=== PATIENT | male | born 2000 | race American Indian/Alaskan Native ===

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

== ENCOUNTER 2019-03-29 10:42 | Emergency (ER) | payer SELFPAY ==
--- NOTE | 2019-03-29 12:39 | Emergency Department Report ---
HPI - General Chief Complaint: Abdominal Pain Time Seen by Provider: 03/29/19 12:28 - HPI HPI: Room 34 The patient is a 18-year-old male presenting with a chief complaint of right groin pain and swelling. Patient states for partial 7 months she's had swelling in his right groin. Patient states for the past 4 months is no swelling in the right scrotum. Patient denies nausea or vomiting. Patient denies history of fever. Patient states his last bowel movement occurred yesterday. Patient states there've been no new developments in his symptoms prompting him to come to the emergency department today Location: [See above] Duration: [See above] Quality: [See above] Severity: [See above] Timing: [See above] Context: [See above] Modifying factors: [See above] Associated signs and symptoms: [see above] ED Past Medical Hx - Past Medical History Previous Medical History?: Yes Hx Psychiatric Treatment: Yes (ADHD) - Surgical History Past Surgical History?: No - Family History Family history: no significant - Social History Smoking Status: Current Some Day Smoker Substance Use Type: None, Marijuana - Medications Home Medications: Home Medications Medication Instructions Recorded Confirmed Last Taken Type traMADol [Ultram] 50 mg PO Q6HR PRN #10 tablet 03/29/19 Unknown Rx ED Review of Systems ROS: Stated complaint: POSS HERNIA Other details as noted in HPI Constitutional: denies: fever Eyes: denies: eye pain ENT: denies: throat pain Respiratory: no symptoms reported Cardiovascular: denies: chest pain Endocrine: no symptoms reported Gastrointestinal: denies: abdominal pain, nausea, vomiting Genitourinary: denies: dysuria Musculoskeletal: denies: back pain Neurological: denies: headache Physical Exam - Physical Exam Vital Signs: Vital Signs 03/29/19 10:56 Temperature 97.4 F L Pulse Rate 113 H Respiratory 16 Rate Blood Pressure 142/79 O2 Sat by Pulse 100 Oximetry Physical Exam: GENERAL: The patient is well-developed well-nourished male lying on a chair not appearing to be in acute distress. [] HEENT: Normocephalic. Atraumatic. Extraocular motions are intact. Patient has moist mucous membranes. NECK: Supple. Trachea midline CHEST/LUNGS: Clear to auscultation. There is no respiratory distress noted. HEART/CARDIOVASCULAR: Regular. There is no tachycardia. There is no gallop rub or murmur. ABDOMEN: Abdomen is soft, nontender. Patient has normal bowel sounds. There is no abdominal distention. SKIN: There is no rash. There is no edema. There is no diaphoresis. NEURO: The patient is awake, alert, and oriented. The patient is cooperative. The patient has no focal neurologic deficits. The patient has normal speech and gait. MUSCULOSKELETAL: There is no evidence of acute injury. Genitourinary: Significant swelling appreciated in the scrotum. No right inguinal tenderness or swelling appreciated ED Course Vital Signs 03/29/19 10:56 Temperature 97.4 F L Pulse Rate 113 H Respiratory 16 Rate Blood Pressure 142/79 O2 Sat by Pulse 100 Oximetry ED Medical Decision Making - Lab Data Result diagrams: 03/29/19 13:51 03/29/19 13:51 Laboratory Tests 03/29/19 03/29/19 13:51 13:51 WBC 8.2 RBC 4.70 Hgb 13.3 Hct 40.1 MCV 85 MCH 28 MCHC 33 RDW 14.1 Plt Count 280 Lymph % (Auto) 26.0 Ross % (Auto) 9.2 H Eos % (Auto) 2.1 Baso % (Auto) 0.7 Lymph # 2.1 Ross # 0.8 Eos # 0.2 Baso # 0.1 Seg Neutrophils % 62.0 Seg Neutrophils # 5.1 Sodium 145 Potassium 3.8 Chloride 106.1 Carbon Dioxide 25 Anion Gap 18 BUN 6 L Creatinine 0.9 Estimated GFR > 60 BUN/Creatinine Ratio 7 Glucose 78 Calcium 9.2 - Radiology Data Radiology results: report reviewed (CT abdomen and pelvis, testicular ultrasound), image reviewed (CT abdomen and pelvis, testicular ultrasound) [address] [address] Ultrasound Report Signed Patient: OSMIN PATE MR#: [id number] : 2000 Acct:[id number] Age/Sex: 18 / M ADM Date: 03/29/19 Loc: ED Attending Dr: Ordering Physician: RUPERTO CABRAL MD Date of Service: 03/29/19 Procedure(s): US testicular doppler comp Accession Number(s): [id number] cc: RUPERTO CABRAL MD ULTRASOUND SCROTUM INDICATION: scrotal swelling, groin pain. COMPARISON CT abdomen and pelvis 03/29/2019 FINDINGS -- RIGHT TESTIS: Size: 4.3 x 2.5 x 2.4 cm. Echotexture: Normal. Color Doppler Flow: Normal. Lesions: None. EPIDIDYMIS: Size: Normal. Echotexture: Normal. Color Doppler Flow: Normal. Lesions: None. Hydrocele: None. Varicocele: None. Additional Findings: None. FINDINGS -- LEFT TESTIS: Size: 2.8 x 1.4 x 2.2 cm. Echotexture: Normal. Color Doppler Flow: Normal. Lesions: None. EPIDIDYMIS: Size: Normal. Echotexture: Normal. Color Doppler Flow: Normal. Lesions: None. Hydrocele: None. Varicocele: None. Additional Findings: Right inguinal hernia containing fat measuring 3.3 cm in diameter confirmed on recent pelvic CT IMPRESSION: 1. Large fat-containing right inguinal hernia 2. No other sonographic abnormality of the scrotum. Signer Name: Ricardo Jimenez MD Signed: 03/29/2019 5:00 PM Workstation Name: [id number] Transcribed By: TL Dictated By: Ricardo Jimenez MD Electronically Authenticated By: Ricardo Jimenez MD Signed Date/Time: 03/29/19 1700 DD/ 1658 TD/TT: [place] [address] Cat Scan Report Signed Patient: OSMIN PATE MR#: [id number] : 2000 Acct:[id number] Age/Sex: 18 / M ADM Date: 03/29/19 Loc: ED Attending Dr: Ordering Physician: RUPERTO CABRAL MD Date of Service: 03/29/19 Procedure(s): CT abdomen pelvis wo con Accession Number(s): [id number] cc: RUPERTO CABRAL MD CT abdomen pelvis wo con INDICATION / CLINICAL INFORMATION: right groin/scrotal swelling. TECHNIQUE: All CT scans at this location are performed using CT dose reduction for ALARA by means of automated exposure control. COMPARISON: None available. FINDINGS: The lung bases are clear. ABDOMEN: The gallbladder, liver, spleen, pancreas, adrenal glands and kidneys are normal. No mesenteric or retroperitoneal adenopathy. Small bowel appears normal. Pelvis: The appendix is normal. There are no dependent fluid collections or inflammatory changes seen in the pelvis. A fat-containing right inguinal hernia is defined. No bony abnormalities. IMPRESSION: 1. Right inguinal hernia containing fat. Signer Name: Néstor Rosas MD Signed: 03/29/2019 2:51 PM Workstation Name: [id number] Transcribed By: MARILYN Dictated By: Néstor Rosas MD Electronically Authenticated By: Néstor Rosas MD Signed Date/Time: 03/29/19 1451 DD/ 1448 TD/TT: - Differential Diagnosis inguinal hernia, testicular torsion Critical care attestation.: If time is entered above; I have spent that time in minutes in the direct care of this critically ill patient, excluding procedure time. ED Disposition Clinical Impression: Right inguinal hernia Disposition: DC-01 TO HOME OR SELFCARE Is pt being admited?: No Does the pt Need Aspirin: No Condition: Stable Instructions: Inguinal Hernia (ED) Additional Instructions: Return to the emergency department should you develop worsening symptoms, inability to tolerate food or liquids, high fever or any other concerns Prescriptions: traMADol [Ultram] 50 mg PO Q6HR PRN #10 tablet PRN Reason: Pain Referrals: WENDY [place] MD OJ [Primary Care Provider] - 3-5 Days ALBA GRAHAM DO [Staff Physician] - 3-5 Days Time of Disposition: 17:19
[2019-03-29 14:18] LABS: Basophils # (Auto) 0.1 K/mm3 (0.0-0.1); Basophils % (Auto) 0.7 % (0.0-1.8); Eosinophils # (Auto) 0.2 K/mm3 (0.0-0.4); Eosinophils % (Auto) 2.1 % (0.0-4.3); Hematocrit 40.1 % (35.5-45.6); Hemoglobin 13.3 gm/dl (11.8-15.2); Lymphocytes # (Auto) 2.1 K/mm3 (1.2-5.4); Mean Corpuscular HGB Conc 33 % (32-34); Mean Corpuscular Volume 85 fl (84-94); Monocytes # (Auto) 0.8 K/mm3 (0.0-0.8); Monocytes % (Auto) 9.2 % (0.0-7.3); Platelet Count 280 K/mm3 (140-440); Red Cell Distribution Width 14.1 % (13.2-15.2)
--- NOTE | 2019-03-29 14:55 | Cat Scan Report ---
CT abdomen pelvis wo con INDICATION / CLINICAL INFORMATION: right groin/scrotal swelling. TECHNIQUE: All CT scans at this location are performed using CT dose reduction for ALARA by means of automated e xposure control. COMPARISON: None available. FINDINGS: The lung bases are clear. ABDOMEN: The gallbladder, liver, spleen, pancreas, adrenal glands and kidneys are normal. No mesenteric or retroperitoneal adenopathy. Small bowel appears normal. Pelvis: The appendix is normal. There are no dependent fluid collections or inflammatory changes seen in the pelvis. A fat-containing right inguinal hernia is defined. No bony abnormalities. IMPRESSION: 1. Right inguinal hernia containing fat. Signer Name: Néstor Rosas MD Signed: 03/29/2019 2:51 PM Workstation Name: [id number]
[2019-03-29 14:58] LABS: BUN/Creatinine Ratio 7; Blood Urea Nitrogen 6 mg/dL (9-20); Calcium 9.2 mg/dL (8.4-10.2); Hemolysis Index 3
--- NOTE | 2019-03-29 17:05 | Ultrasound Report ---
ULTRASOUND SCROTUM INDICATION: scrotal swelling, groin pain. COMPARISON CT abdomen and pelvis 03/29/2019 FINDINGS -- RIGHT TESTIS: Size: 4.3 x 2.5 x 2.4 cm. Echotexture: Normal. Color Doppler Flow: Normal. Lesions: None. EPIDIDYMIS: Size: Normal. Echotexture: Normal. Color Doppler Flow: Normal. Lesions: None. Hydrocele: None. Varicocele: None. Additional Findings: None. FINDINGS -- LEFT TESTIS: Size: 2.8 x 1.4 x 2.2 cm. Echotexture: Normal. Color Doppler Flow: Normal. Lesions: None. EPIDIDYMIS: Size: Normal. Echotexture: Normal. Color Doppler Flow: Normal. Lesions: None. Hydrocele: None. Varicocele: None. Additional Findings: Right inguinal hernia containing fat measuring 3.3 cm in diameter confirmed on r ecent pelvic CT IMPRESSION: 1. Large fat-containing right inguinal hernia 2. No other sonographic abnormality of the scrotum. Signer Name: Ricardo Jimenez MD Signed: 03/29/2019 5:00 PM Workstation Name: [id number] [id number]
[2019-03-29 17:48] VITALS: BP 126/73
== END 2019-03-29 17:47 | disposition home or self-care (01) ==
LOC: ED 10:42
DX: K40.90 Unilateral inguinal hernia, without obstruction or gangrene, not specified as recurrent (principal); F17.200 Nicotine dependence, unspecified, uncomplicated; F12.10 Cannabis abuse, uncomplicated; F90.9 Attention-deficit hyperactivity disorder, unspecified type
CPT/HCPCS: 36415; 74176; 80048; 85025; 93975

== ENCOUNTER 2021-03-16 19:17 | Emergency (ER) | payer SELFPAY ==
[2021-03-16 22:12] VITALS: BP 154/94
== END 2021-03-16 22:30 | disposition left against medical advice (07) ==
LOC: ED 19:17
DX: M54.2 Cervicalgia (principal); Z53.21 Procedure and treatment not carried out due to patient leaving prior to being seen by health care provider